=== PATIENT | female | born 1995 | race American Indian/Alaskan Native ===

== ENCOUNTER 2018-02-28 23:20 | Emergency (ER) | payer MEDICAID ==
[2018-02-28] MEDS ORDERED: Lactated Ringer's 1,000 ML IV ONE (23:46)
--- NOTE | 2018-02-28 23:53 | OBHP ---
Datetime: 02/28/2018 23:45 IP Adm Impression: , intrauterine Admit Comment, IP Provider: @ 36.6 wks GA CHRISTY 03/22/17 c/o nause and vomitign x 1 at 9pm, dnie s lof, vb, ctx, +FM Pt reprots feeling hungry. 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 and trichomonas this , dneis hx o fibords, ovairan cywst PMH: denes PSH: denies FHX : non contriblutyr MEDS: PNV NKDA SHX: negative etoh/tobacc/dourgs A/P @ 36.6wks GA with gastritis -labs -ivh -zofran prn -po challenege -nst -precaution given Pelvic Type - PN: Adequate Extremities - PN: Normal Abdomen - PN: Normal Back - PN: Normal Breast - PN: Not Done Lungs - PN: Normal Heart - PN: Normal Thyroid - PN: Not Done Neurologic - PN: Normal HEENT - PN: Normal General - PN: Normal Presentation-Admit: Vertex FHR - Baseline A Provider: 130 Membranes, Provider: Intact Contraction Comments Provider: 7 min Gestation - Est Wks by US: 36.6 EGA AdmitDate IP: 37.0 Vital Signs Provider: Reviewed IP Chief Complaint: Other NICHD Variability Prov Fetus A: Moderate 6-25bpm FHR Category Provider Fetus A: Category I NICHD Decel Fetus A IP Provider: None Dilatation, Provider: 0 Effacement, Provider: 0 Station, Provider: -3 Genitourinary Exam: Normal DTRs - PN: Normal
[2018-03-01 00:35] LABS: BASO % 0.6 % (0.0-2.0); EOS % 0.1 % (0.0-4.0); HEMOGLOBIN 9.9 g/dL (11.0-16.0); LYMPH # 1.8 K/uL (1.0-4.3); MEAN CELL VOLUME 87.2 fL (81.0-99.0); MEAN CORPUSCULAR HEMOGLOBIN 29.3 pg (27.0-31.0); MEAN CORPUSCULAR HGB CONC 33.6 g/dL (33.0-37.0); MEAN PLATELET VOLUME 10.1 fL (7.2-11.7); MONO # 0.8 K/uL (0.0-0.8); MONO % 10.8 % (0.0-10.0); NEUT % 65.5 % (50.0-75.0); RBC 3.37 Mil/uL (3.80-5.20); RED CELL DISTRIBUTION WIDTH 13.5 % (11.5-14.5); WHITE BLOOD COUNT 7.7 K/uL (4.8-10.8)
[2018-03-01 00:42] LABS: SQUAMOUS EPITHIAL 1 /hpf (0-5); URINE BACTERIA RARE (<OCC); URINE BILIRUBIN NEGATIVE (NEGATIVE); URINE BLOOD NEGATIVE (NEGATIVE); URINE CLARITY Clear (Clear); URINE COLOR Yellow (YELLOW); URINE GLUCOSE (UA) NORMAL (Normal); URINE LEUKOCYTE ESTERASE NEG Leu/uL (Negative); URINE PROTEIN NEGATIVE (NEGATIVE); URINE UROBILINOGEN NORMAL mg/dL (0.2-1.0)
[2018-03-01 00:46] LABS: ALB/GLOB RATIO 1.1 (1.0-2.1); ALBUMIN 3.5 g/dL (3.5-5.0); ALT/SGPT 28 U/L (9-52); AMYLASE 94 U/L (30-110); AST/SGOT 22 U/L (14-36); BLOOD UREA NITROGEN 6 mg/dL (7-17); CALCIUM 8.7 mg/dl (8.6-10.4); GFR AFRICAN-AMERICAN > 60; GFR NON-AFRICAN AMERICAN > 60; LIPASE 89 U/L (23-300)
[2018-03-01 15:06] VITALS: BP 135/82; PULSE 73; TEMP 98
== END 2018-03-01 01:13 | disposition home or self-care (01) ==
LOC: C.EROB 23:20
DX: O26.893 Other specified pregnancy related conditions, third trimester (principal); K29.70 Gastritis, unspecified, without bleeding; Z3A.36 36 weeks gestation of pregnancy
CPT/HCPCS: 80053; 81001; 82150; 83690; 85025; 99283; J7120

== ENCOUNTER 2018-03-16 16:56 | Emergency (ER) | payer SELFPAY ==
--- NOTE | 2018-03-16 18:02 | OBHP ---
Datetime: 03/16/2018 17:57 IP Adm Impression: Term, intrauterine IP Admit Plan: Discharge home Admit Comment, IP Provider: at 39+weeks came with c/o ctxs started on/off irrg , no vb, no lof+ fm. [place] [facility] [place] have [place] vists. obhx primi pmh de med pnv all nkda psh de soch de ve /-2 a/p at 39+weks in early labor nst on 03/20 labor given po hy f/u Pelvic Type - PN: Adequate Extremities - PN: Normal Abdomen - PN: Normal Back - PN: Normal Breast - PN: Normal Lungs - PN: Normal Heart - PN: Normal Thyroid - PN: Normal Neurologic - PN: Normal HEENT - PN: Normal General - PN: Normal FHR - Baseline A Provider: 130 Contraction Comments Provider: tona EGA AdmitDate IP: 39.1 Vital Signs Provider: Reviewed; Within Normal Limits IP Chief Complaint: Uterine contractions NICHD Variability Prov Fetus A: Moderate 6-25bpm NICHD Accel Fetus A IP Provider: 15X15 FHR Category Provider Fetus A: Category I Dilatation, Provider: 2 Effacement, Provider: 70 Station, Provider: -2 Genitourinary Exam: Normal DTRs - PN: Normal
--- NOTE | 2018-03-16 18:06 | OBDCSUM ---
Datetime: 03/16/2018 17:52 Discharged to, Provider: Home [place], [place] [facility] [place] Instr Activity: Normal activity Disch Instr Diet: Regular Discharge Time: 03/16/2018 17:52 Disch Referrals: None Disch Activity Restrictions: No lifting; Minimize walking; Minimize stair-climbing; No sexual activi ty; Nothing in vagina - [place], tampons, douche Discharge Comment, Provider: nst on 03/20 labor given po hy f/u Discharge Diagnosis Prov Other: false labor
== END 2018-03-16 18:01 | disposition home or self-care (01) ==
LOC: C.EROB 16:56
DX: O47.1 False labor at or after 37 completed weeks of gestation (principal); Z3A.39 39 weeks gestation of pregnancy

== ENCOUNTER 2018-03-21 17:20 | Inpatient (IN) | payer MEDICAID ==
[2018-03-21] MEDS ORDERED: Penicillin G 5 Million Unit Vial IVPB ONE (18:49)
[2018-03-21] MEDS ORDERED: Lactated Ringer's 1,000 ML IV SCH (19:00)
--- NOTE | 2018-03-21 19:38 | OBHP ---
Datetime: 03/21/2018 18:57 IP Adm Impression: Term, intrauterine ; No Active Labor; Intact Membranes IP Adm Impression Other: Insufficient care; GBS unkonwn IP Admit Plan: Admit to unit IP Admit Plan Other: Cervical ripening Admit Comment, IP Provider: 23 y.o. , LMP unsure, CHRISTY 03/21/18, EGA 40 weeks by sono 08/28/17 at 10w 5d, c/o "no more room; I feel the baby up on my ribs.... I can't even eat anything". (+) nause a and vomiting x >= 2weeks. (+) AFM; denies LOF, VB, Ctx. care: [facility] - last visit 4 weeks ago "the doctor stopped coming to the clinic". States was told of elevated BP in the cl inic: no evaluation; was never started on meds. 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 Denies STIs; 1 Pap - negative. PMH: denies PSH: denies NKDA Meds: stopped PNV at 5 months; took OTC MVI x 1 month, then stopped at 6 months Soc Hx: denies tobacco, illicit drug or EtOH use. Wtih FOB x 7 years. Lives with her mother. 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 Father alive 47 y.o. - knows nothing of their medical historsy. No kn own fam h/o cancer P.E.: as above. Small in pain with contractions. Awake, alert, oriented to time, person and place . Pleasant and cooperative. FOB present Assessment: 23 y.o. P0020, 40 weeks, latent phase of labor; insufficient care. GBS (-). P atient counseled for admission and delivery. Patient is receptive. D/W patient: cervical ripening, po ssible pitocin; pain medication. Patient expressed an understanding and agrees. No questions offered. Transiently elevated BP noted: denies headaches, blurred vision, epigastric or RUQ pain ... no evidn rui of pre-eclampsia. Clinically stable. Plan: 1) Admit 2) NPO 3) IVFs 4) Continuous EFM 5) Admission labs 6) pre-eclamptic labs 7) re-assess in 2 hours, 8) pain medications,upon request 9) anticipate vaginal delivery Pelvic Type - PN: Adequate Extremities - PN: Normal Abdomen - PN: Normal Back - PN: Normal Breast - PN: Normal Lungs - PN: Normal Heart - PN: Normal Thyroid - PN: Not Done Neurologic - PN: Normal HEENT - PN: Normal General - PN: Normal Weight - Estimated: 3632 Presentation-Admit: Vertex FHR - Baseline A Provider: 145 Membranes, Provider: Intact Contraction Comments Provider: irregular Comments, ACOG Physical Exam: Abdomen: Gravid. Firm with contractions. Fundal height 39cm All other systems reviewed and are negative Gestation - Est Wks by US: 40.0 IP Hx Assessment: The History has been Reviewed and is Current EGA AdmitDate IP: 40.0 Vital Signs Provider: Reviewed IP Indication for Induction: Gest. HTN/PreEclampsia/Eclampsia IP Chief Complaint: Maternal discomfort NICHD Variability Prov Fetus A: Moderate 6-25bpm NICHD Accel Fetus A IP Provider: 15X15 FHR Category Provider Fetus A: Category I NICHD Decel Fetus A IP Provider: None Dilatation, Provider: 2-3 Effacement, Provider: 40 Station, Provider: -3 Genitourinary Exam: Normal DTRs - PN: Not Done
[2018-03-21] MEDS ORDERED: Dextrose 5%/0.9% NS 1,000 ML IV ONE (19:45)
[2018-03-21 20:05] LABS: BASO # 0.1 K/uL (0.0-0.2); BASO % 0.8 % (0.0-2.0); EOS % 0.1 % (0.0-4.0); HEMOGLOBIN 10.1 g/dL (11.0-16.0); LYMPH # 1.9 K/uL (1.0-4.3); LYMPH % 23.8 % (20.0-40.0); MEAN CELL VOLUME 87.3 fL (81.0-99.0); MEAN CORPUSCULAR HEMOGLOBIN 29.2 pg (27.0-31.0); MEAN CORPUSCULAR HGB CONC 33.5 g/dL (33.0-37.0); MEAN PLATELET VOLUME 9.7 fL (7.2-11.7); MONO # 0.9 K/uL (0.0-0.8); MONO % 10.9 % (0.0-10.0); NEUT % 64.4 % (50.0-75.0); RBC 3.44 Mil/uL (3.80-5.20); RED CELL DISTRIBUTION WIDTH 14.3 % (11.5-14.5); WHITE BLOOD COUNT 7.8 K/uL (4.8-10.8)
[2018-03-21 20:14] LABS: PROTHROMBIN TIME 10.4 SECONDS (9.7-12.2)
[2018-03-21 20:19] LABS: SQUAMOUS EPITHIAL 5 /hpf (0-5); URINE BACTERIA OCC (<OCC); URINE BILIRUBIN NEGATIVE (NEGATIVE); URINE CLARITY Clear (Clear); URINE COLOR Straw (YELLOW); URINE GLUCOSE (UA) NORMAL (Normal); URINE LEUKOCYTE ESTERASE NEG Leu/uL (Negative); URINE PROTEIN NEGATIVE (NEGATIVE); URINE UROBILINOGEN NORMAL mg/dL (0.2-1.0)
[2018-03-21 20:20] LABS: ALBUMIN 3.5 g/dL (3.5-5.0); ALT/SGPT 17 U/L (9-52); AST/SGOT 23 U/L (14-36); BLOOD UREA NITROGEN 11 mg/dL (7-17); CALCIUM 8.8 mg/dl (8.6-10.4); GFR AFRICAN-AMERICAN > 60; GFR NON-AFRICAN AMERICAN 57; URIC ACID 6.5 mg/dL (2.2-7.5)
[2018-03-21 20:22] LABS: URINE BLOOD 1+ (NEGATIVE)
[2018-03-21 20:36] LABS: BARBITURATES, UR NEGATIVE (NEGATIVE); OPIATES, UR NEGATIVE (NEGATIVE); PHENCYCLIDINE, UR NEGATIVE (NEGATIVE)
[2018-03-21 21:05] LABS: BENZODIAZEPINES, UR NEGATIVE (NEGATIVE)
--- NOTE | 2018-03-21 21:33 | OBPN ---
Datetime: 03/21/2018 21:16 IP Progress Impression: Normal progression of labor IP Procedures: Sterile Vag Exam IP Progress Plan: Continue present management; Cervical Ripening; Anticipate Vaginal Delivery Membranes, Provider: Intact Contraction Comments Provider: 10-15 FHR - Baseline A Provider: 145 Gestation - Est Wks by US: 40.0 IP Progress Note Comment: Patient examined 2100 hours - c/o urge to have a BM. Pain scale with Ctx, 10/10. Denies STONE, BV, epigastric or RUQ pain. Cervical exam: as above. Assessment: 23 y.o. P0, 40w, latent phase of labor; insufficient care. GBS(-) Spuriously elevated BP coincide with cervical examination and/or contraction. Pre-eclamptic labs all negative. N o stigmata of pre-eclampsia. Category 1 tracing. Clinically stable. Plan: 1) cytotec 50 micrograms p.o. x 1 2) pain meds, upon request 3) anticipate vaginal delivery Vital Signs Provider: Reviewed NICHD Accel Fetus A IP Provider: 15X15 FHR Category Provider Fetus A: Category I NICHD Variability Prov Fetus A: Moderate 6-25bpm Dilatation, Provider: 3 Effacement, Provider: 60 Station, Provider: -2 NICHD Decel Fetus A IP Provider: None Datetime: 03/21/2018 18:57 Weight - Estimated: 3632 Presentation-Admit: Vertex
[2018-03-22] MEDS ORDERED: Oxytocin 30 UNIT 30 UNITS/500 ML BAG IV ONE ×2 (08:56→08:57)
[2018-03-22] MEDS ORDERED: Oxytocin 30 UNIT 30 UNITS/500 ML BAG IV SCH (09:00)
--- NOTE | 2018-03-22 09:00 | OBPN ---
Datetime: 03/22/2018 08:51 IP Progress Impression: Reassuring heart rate IP Progress Plan: Augmentation Contraction Comments Provider: 2-6 min FHR - Baseline A Provider: 130 Presentation-Admit: Vertex IP Progress Note Comment: Pt c/o ctx . No c/o LOF. VE: 70/-2. Plan: start pitocin for Augmentation of labor Monitor BP and will start Magnesium sulfate if the BP remians evelated. Epidural when needed for pain manegemnt Vital Signs Provider: Reviewed NICHD Accel Fetus A IP Provider: 15X15 FHR Category Provider Fetus A: Category I NICHD Variability Prov Fetus A: Moderate 6-25bpm Dilatation, Provider: 3 Effacement, Provider: 70 Station, Provider: -2 NICHD Decel Fetus A IP Provider: None
[2018-03-22] MEDS ORDERED: Bupivacaine HCl/FentaNYL Cit 100 ML EPI ONE (12:02)
--- NOTE | 2018-03-22 12:59 | OBPN ---
Datetime: 03/22/2018 12:56 IP Progress Impression: Reassuring heart rate IP Procedures: Artificial ROM IP Progress Plan: Continue present management Membranes, Provider: Ruptured Amniotic Fluid Color, Provider: Clear FHR - Baseline A Provider: 130 IP Progress Note Comment: Pt comfortable after epidural. VE: /-2 AROM with large amount of clear fluid Continue Pitocin Anticipate FHR Category Provider Fetus A: Category I NICHD Variability Prov Fetus A: Moderate 6-25bpm Dilatation, Provider: 3 Effacement, Provider: 90 Station, Provider: -2 NICHD Decel Fetus A IP Provider: None
[2018-03-22] MEDS ORDERED: Magnesium Sulfate 4 gm/100 ml 4 GM/100 ML BAG IVPB ONE (15:58)
[2018-03-22] MEDS ORDERED: Sodium Citrate/Citric Acid 15 ml Sol PO STA (16:17)
[2018-03-22] MEDS ORDERED: Sodium Citrate/Citric Acid 15 ml Sol ONE (16:40)
[2018-03-22] MEDS ORDERED: ceFAZolin IV 2 gm in Dextrose 2 GM/50 ML BAG IVPB ONE (16:40)
[2018-03-22] MEDS ORDERED: ceFAZolin IV 2 gm in Dextrose 2 GM/50 ML BAG IVPB STA (16:47)
[2018-03-22] MEDS: Magnesium Sulfate 20 gm 20 GM/500 ML BAG IV SCH ×2 (17:52→22:40)
[2018-03-22] MEDS ORDERED: Lidocaine 2% MPF (5 ml) Inj ONE (18:40)
[2018-03-22] MEDS ORDERED: Midazolam 2 MG/2 ML VIAL ONE (20:56)
[2018-03-22] MEDS ORDERED: Oxytocin 10 Units/ml Inj ONE (21:01)
[2018-03-22] MEDS ORDERED: Morphine 4 MG/ML VIAL ONE (21:49)
[2018-03-22] MEDS ORDERED: Labetalol 5 mg/ml Inj 20ML IV STA (22:07)
[2018-03-22] MEDS ORDERED: DiphenhydrAMINE 50 mg/ml Inj IVP PRN (22:21)
[2018-03-22] MEDS ORDERED: Labetalol 5 mg/ml Inj 20ML IV ONE (22:30)
[2018-03-22] MEDS ORDERED: Magnesium Sulfate 20 gm 20,000 MG/500 ML BAG IV ONE (22:31)
[2018-03-22] MEDS: HYDROmorphone 0.5 mg/0.5 ml ISec IVP PRN ×2 (23:10→23:20)
[2018-03-23] MEDS: HYDROmorphone 0.5 mg/0.5 ml ISec IVP PRN ×2 (00:55→01:35)
[2018-03-23 07:03] LABS: HEMOGLOBIN 9.3 g/dL (11.0-16.0); MEAN CORPUSCULAR HGB CONC 33.4 g/dL (33.0-37.0); MEAN PLATELET VOLUME 9.8 fL (7.2-11.7); RBC 3.2 Mil/uL (3.80-5.20); RED CELL DISTRIBUTION WIDTH 14.5 % (11.5-14.5); WHITE BLOOD COUNT 12.4 K/uL (4.8-10.8)
[2018-03-23] MEDS ORDERED: Magnesium Sulfate 20 gm 20 GM/500 ML BAG IV SCH (08:00)
[2018-03-23] MEDS ORDERED: Magnesium Sulfate 20 gm 20,000 MG/500 ML BAG IV ONE (08:47)
[2018-03-23] MEDS ORDERED: Oxycodone/Acetaminophen 5/325 mg Tab ONE (18:06)
[2018-03-23] MEDS: Oxycodone/Acetaminophen 5/325 mg Tab PO PRN (18:10)
[2018-03-23] MEDS: NIFEdipine 30 mg ER Tab PO SCH (23:45)
[2018-03-24] MEDS: Oxycodone/Acetaminophen 5/325 mg Tab PO PRN ×5 (00:54→21:30)
[2018-03-24] MEDS: Prenatal Multivit/Folic Acid/Iron Tab PO SCH (09:23)
[2018-03-24] MEDS: Multiple Vitamins Tab PO SCH (09:23)
--- NOTE | 2018-03-24 11:00 | RAD ---
Date of service: 03/24/2018 HISTORY: New found fever COMPARISON: No prior. TECHNIQUE: Chest PA and lateral FINDINGS: LUNGS: No active pulmonary disease. PLEURA: No significant pleural effusion identified. No pneumothorax apparent. CARDIOVASCULAR: Normal. OSSEOUS STRUCTURES: No significant abnormalities. VISUALIZED UPPER ABDOMEN: Normal. OTHER FINDINGS: None. IMPRESSION: No active disease.
[2018-03-24 11:34] LABS: BASO % 0.2 % (0.0-2.0); HEMOGLOBIN 8.7 g/dL (11.0-16.0); LYMPH # 1.7 K/uL (1.0-4.3); LYMPH % 13.6 % (20.0-40.0); MEAN CELL VOLUME 86.8 fL (81.0-99.0); MEAN CORPUSCULAR HEMOGLOBIN 28.9 pg (27.0-31.0); MEAN CORPUSCULAR HGB CONC 33.3 g/dL (33.0-37.0); MEAN PLATELET VOLUME 9.2 fL (7.2-11.7); MONO # 1.1 K/uL (0.0-0.8); MONO % 8.6 % (0.0-10.0); NEUT # 9.5 K/uL (1.8-7.0); NEUT % 77.6 % (50.0-75.0); RBC 3.02 Mil/uL (3.80-5.20); WHITE BLOOD COUNT 12.3 K/uL (4.8-10.8)
[2018-03-24] MEDS: NIFEdipine 30 mg ER Tab PO SCH (13:09)
[2018-03-24 16:36] VITALS: RESP 20
--- NOTE | 2018-03-24 22:11 | OBPPN ---
Datetime: 03/24/2018 21:24 PP Pain Prov: Within normal limits PP Nausea Prov: Denies PP Flatus Prov: Yes PP BM Prov: No PP Breasts Prov: Normal PP Heart Prov: Abnormal PP Lungs Prov: Normal PP Abdomen/Uterus Prov: Normal PP Lochia Prov: Normal PP Vulva/Perineum Prov: Not Done PP CVA Tenderness Prov: Normal PP Extremities Prov: Normal PP C/S Incision Prov: Normal PP Progress Prov: Normal PP Comments Phys Exam Prov: Cardiac: Sinus tachycardia, normal S1, S2 Abdomen: (+) BS. Soft. Non distended. Incision with subQ closure - clean, dry and intact. Fundus firm, mild and appropriately tender, mobile, 1 FB below umbilicus. Mild lochia rubra Extremities: no calf tenderness All other systems reviewed and are negative PP Impression Prov: Normal progression PP Plan Prov: Continue present management PP Progress Note Prov: Patient seen and evaluated at approximately 0930 hours; received in bed (had sat up x approximately 1 1/2 hours). Desires to breastfeed; denies nausea, vomiting; hungry. (+) Void ed; ambulated to bathroom. P.E.: as above. Small in NAD. Awake, alert, orientetd to time, person and place. Pleasant and coop erative. FOB present - POD#1 H/H 9.3/27.8 Rh (+) Assessment: POD#2, 23 y.o. P1, S/P primary C/S for failure to progress; and S/P magnesium sulphate for seizure prophylaxis - pre-eclampsia; currently on procardia XL 30 mg p.o. QD. Returning GI and functions. Elevated temperature noted; most likely secondary to atelectasis. Pulmonary toilette performed, as well as instruction on use of incentive spirometer. Also, encouraged to ambulate. Jennifer ent is clinically stable. Plan: 1) As above. 2) Advance diet 3) CBC 4) CXR Addendum: - WBC 12.4; H/H 8.7/26.2 - CXR: negative Plan: 1) as above. 2) Antcipate discharge home 03/25/18 IP PP Procedures: None Vital Signs Provider PP: Reviewed; Within Normal Limits Vital Signs Provider Details PP: T=101.5 at 0715 hours; repeat 99.4 at 0915 hours
[2018-03-25 00:19] VITALS: O2SAT 98
[2018-03-25] MEDS: Oxycodone/Acetaminophen 5/325 mg Tab PO PRN ×2 (02:16→08:56)
[2018-03-25 08:02] VITALS: BP 140/93; PULSE 108; TEMP 97.1
[2018-03-25] MEDS: Prenatal Multivit/Folic Acid/Iron Tab PO SCH ×2 (09:23→09:26)
[2018-03-25] MEDS: Multiple Vitamins Tab PO SCH (09:23)
[2018-03-25] MEDS: NIFEdipine 30 mg ER Tab PO SCH (09:49)
--- NOTE | 2018-03-25 20:29 | OBDCSUM ---
Datetime: 03/25/2018 17:30 Discharged to, Provider: Home Follow up at, Provider: [facility] Disch Instr Activity: Normal activity Disch Instr Diet: Regular Discharge Diet restrict Prov: none Discharge Instructions, Provider: Routine instructions given Discharge Diagnosis, Provider: Term Delivered Discharge Time: 03/25/2018 17:47 Follow up in weeks, Provider: 03/29/18 Disch Referrals: None Contraception discussed, Prov: Yes Disch Activity Restrictions: No exercising; No lifting; No driving; No sexual activity; Nothing in v agina - [place], tampons, douche Discharge Diagnosis Prov Other: Insufficient care Status post section Pre-eclampsia Chronic anemia Contraception counseling Contraception after Delivery: Undecided Datetime: 03/25/2018 16:53 Discharged to, Provider: Home Follow up at, Provider: [facility] Disch Instr Activity: Normal activity Disch Instr Diet: Regular Discharge Time: 03/25/2018 18:00 Follow up in weeks, Provider: 1 week Disch Referrals: None Disch Activity Restrictions: No exercising; No lifting; No driving; Minimize walking; Minimize stair -climbing; No sexual activity; Nothing in vagina - [place], tampons, douche
--- NOTE | 2018-03-25 21:03 | OBPPN ---
Datetime: 03/25/2018 20:09 PP Pain Prov: Within normal limits PP Nausea Prov: Denies PP Flatus Prov: Yes PP BM Prov: Yes PP Breasts Prov: Normal PP Heart Prov: Normal PP Lungs Prov: Normal PP Abdomen/Uterus Prov: Normal PP Lochia Prov: Normal PP Vulva/Perineum Prov: Not Done PP CVA Tenderness Prov: Normal PP Extremities Prov: Normal PP C/S Incision Prov: Normal PP Progress Prov: Not Applicable PP Comments Phys Exam Prov: Abdomen: (+) BS. Soft. Non distended. Incision - clean, dry and intact. Fundus firm, mobile, non tender, 1 FB below umbilicus. Minimal lochia rubra Extremities: no calf tenderness All other systems reviewed and are negative PP Impression Prov: Normal progression PP Plan Prov: Discharge PP Progress Note Prov: Patient received in room 450, in bed, (bottle)feeding infant. Denies headach es, dizziness, lightheadedness, palpitations; nausea or vomiting. Ambulating and voiding without dif ficulty. P.E.: as above. Small, in NAD. Awake, alert, oriented to time, person and place. 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 P1021, POD#3, S/P primary LTCS - failure to prgress; S/P magneisum sulphate fo r pre-eclampsia. Has been on procardia for persistently elevated BPs, which remain a bit labile. Pat ient still not due to mixed communications re: magnesium sulphate and . Polo nath has been advised, there are no studies that reveal any untoward effect to infants who are breas tfed while mother has been on magnesium sulphate. Contraception D/W patient; options briefly address ed. Patient unsure. Chronic anemia - asymptomatic and hemodynamically. Patient otherwise clinically stable. Plan: 1) Discharge home 2) See full discharge instructions Vital Signs Provider PP: Reviewed; Within Normal Limits
== END 2018-03-25 19:42 | disposition home or self-care (01) | DRG 650 ==
LOC: C.EROB 17:20 → C.4D 18:49 → UNDOADMIN 18:52 → C.4M 03-24 00:38
PROVIDERS: ADMIT Obstetrics & Gynecology; ATTEND Obstetrics & Gynecology
PROC: 10D00Z1 Extraction of Products of Conception, Low, Open Approach (ICD-10-PCS; principal; 2018-03-22)
PROC: 3E0P7VZ Introduction of Hormone into Female Reproductive, Via Natural or Artificial Opening (ICD-10-PCS; 2018-03-22)
PROC: 10907ZC Drainage of Amniotic Fluid, Therapeutic from Products of Conception, Via Natural or Artificial Opening (ICD-10-PCS; 2018-03-22)
DX: O14.94 Unspecified pre-eclampsia, complicating childbirth (principal); O99.02 Anemia complicating childbirth; J98.11 Atelectasis; O63.9 Long labor, unspecified; D64.89 Other specified anemias; O26.23 Pregnancy care for patient with recurrent pregnancy loss, third trimester; O75.89 Other specified complications of labor and delivery; Z3A.40 40 weeks gestation of pregnancy; Z37.0 Single live birth

== ENCOUNTER 2018-03-29 10:39 | Emergency (ER) | payer MEDICAID ==
[2018-03-29 11:05] VITALS: O2SAT 100
--- NOTE | 2018-03-29 11:26 | C.PDOC ---
History Of Present Illness 23 year old female patient presents to the ER with c/o constipation. Patient reports it is painful for her to have a bowel movement and has tried a gel medication that was given with no relief. Patient notes she gave x7 days ago through . Patient denies nausea, vomiting, abdominal pain, fever and chills. Chief Complaint (Nursing): GI Problem History Per: Patient History/Exam Limitations: no limitations Onset/Duration Of Symptoms: Days Current Symptoms Are (Timing): Still Present Past Medical History Reviewed: Historical Data, Nursing Documentation, Vital Signs Vital Signs: Last Vital Signs Temp 98.9 F 03/29/18 12:30 Pulse 100 H 03/29/18 12:30 Resp 16 03/29/18 12:30 BP 129/78 03/29/18 12:30 Pulse Ox 100 03/29/18 12:30 - [facility] Procedures (03/21/18) DRAINAGE OF AMNIOTIC FL, THERAP FROM POC, VIA OPENING (03/21/18) EXTRACTION OF POC, LOW CERVICAL, OPEN APPROACH (03/21/18) Family History: States: No Known Family Hx - Social History Hx Alcohol Use: No Hx Substance Use: No Review Of Systems Except As Marked, All Systems Reviewed And Found Negative. Constitutional: Negative for: Fever, Chills Gastrointestinal: Positive for: Constipation. Negative for: Nausea, Vomiting, Abdominal Pain Physical Exam - Physical Exam Appears: Non-toxic, No Acute Distress Skin: Normal Color, Warm, Dry Head: Atraumatic, Normacephalic Eye(s): bilateral: Normal Inspection Ear(s): Bilateral: Normal Oral Mucosa: Moist Throat: Normal Neck: Normal ROM, Supple Chest: Symmetrical, No Deformity Cardiovascular: Rhythm Regular Respiratory: Normal Breath Sounds Gastrointestinal/Abdominal: Soft, No Tenderness Extremity: Normal ROM (x4 ) Neurological/Psych: Oriented x3, Normal Speech Gait: Steady ED Course And Treatment O2 Sat by Pulse Oximetry: 100 (RA) Pulse Ox Interpretation: Normal Progress Note: Patient did not allow for rectal exam Medical Decision Making Medical Decision Making: Impression: Constipation Plans: -- fleet enema Reassess: Patient is resting comfortably. Patient says she feels better and is comfortably getting discharged home. Patient is advised to f/u with PMD in 1-2 days. Disposition - Disposition Disposition: HOME/ ROUTINE Disposition Time: 12:30 Condition: IMPROVED Additional Instructions: Continue the stool softner as directed. Return to the ED if symptoms persist. Instructions: Constipation in Adults Forms: [facility] (B[place]raini) - Clinical Impression Clinical Impression: Constipation - Scribe Statement The provider has reviewed the documentation as recorded by the Jay Jayibmirza Ramirez Do Provider Attestation: All medical record entries made by the Jay Jayibe were at my direction and personally dictated by me. I have reviewed the chart and agree that the record accurately reflects my personal performance of the history, physical exam, medical decision making, and the department course for this patient. I have also personally directed, reviewed, and agree with the discharge instructions and disposition.
[2018-03-29 12:34] VITALS: BP 129/78; PULSE 100; RESP 16; TEMP 98.9
== END 2018-03-29 12:30 | disposition home or self-care (01) ==
LOC: C.ER 10:39
DX: K59.00 Constipation, unspecified (principal)

== ENCOUNTER 2018-06-12 18:48 | Emergency (ER) | payer MEDICAID, OTHER ==
[2018-06-12 19:11] VITALS: PULSE 78; RESP 18; TEMP 98; O2SAT 98
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
[2018-06-12 20:32] VITALS: BP 116/79
--- NOTE | 2018-06-13 10:05 | RAD ---
Date of service: 06/12/2018 PROCEDURE: Cervical Spine Radiographs. HISTORY: Pain. COMPARISON: No prior study available for comparison. FINDINGS: Note the examination is limited due to partial obscuration of the distal odontoid by overlying occiput in the open-mouth projection. BONES: Alignment maintained. No fracture. Dens Intact. DISC SPACES: Normal. SOFT TISSUES: Normal. No prevertebral soft tissue swelling. OTHER FINDINGS: None. IMPRESSION: No evidence of acute displaced fracture nor dislocation seen within the limitation of this exam.
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
== END 2018-06-12 20:32 | disposition home or self-care (01) ==
LOC: C.ER 18:48
DX: S16.1XXA Strain of muscle, fascia and tendon at neck level, initial encounter (principal); S60.012A Contusion of left thumb without damage to nail, initial encounter; V89.2XXA Person injured in unspecified motor-vehicle accident, traffic, initial encounter

== ENCOUNTER 2018-10-26 12:06 | Emergency (ER) | payer MEDICAID, OTHER ==
[2018-10-26 12:23] VITALS: BP 111/73; PULSE 68; RESP 20; TEMP 98.3; O2SAT 100
[2018-10-26 12:51] LABS: HCG,QUALITATIVE URINE NEGATIVE (NEGATIVE)
[2018-10-26 13:08] LABS: SQUAMOUS EPITHIAL 4 /hpf (0-5); URINE BILIRUBIN NEGATIVE (NEGATIVE); URINE BLOOD NEGATIVE (NEGATIVE); URINE CLARITY Hazy (Clear); URINE COLOR Yellow (YELLOW); URINE GLUCOSE (UA) NORMAL (Normal); URINE LEUKOCYTE ESTERASE NEG Leu/uL (Negative); URINE PROTEIN NEGATIVE (NEGATIVE); URINE UROBILINOGEN NORMAL mg/dL (0.2-1.0)
== END 2018-10-26 13:36 | disposition left against medical advice (07) ==
LOC: C.ER 12:06
DX: Z02.89 Encounter for other administrative examinations (principal); Z00.00 Encounter for general adult medical examination without abnormal findings
CPT/HCPCS: 81001; 84703; LWBS0